=== PATIENT | female | born 1950 | race Caucasian/White ===

== ENCOUNTER → 2016-11-21 | Outpatient (CLI) | payer MEDICARE, OTHER ==
[~2016-11-21] VITALS: Ht 165.1 cm; Wt 61.2 kg
[~2016-11-21] MED LIST: SINCALIDE 1.22 MCG in IV NORMAL SALINE 50ML 30 ML IV ONE
--- NOTE | 2016-11-21 11:55 | RAD ---
Indication epigastric pain. Hepatobiliary scan was performed. 5.5 mCi of technetium labeled Choletec was administered. 1.2 mcg of CCK was diluted in saline and administered over several minutes. Following the CCK administration a gallbladder ejection fraction calculation was made. There is normal uptake of the radiopharmaceutical in the liver. Activity is seen early in the biliary system and gallbladder. Following the CCK administration the gallbladder ejection fraction approaches 80%. IMPRESSION: Normal study
== END | disposition home or self-care (01) ==
LOC: NM 07:46
PROVIDERS: ATTEND Internal Medicine Gastroenterology
DX: R10.13 Epigastric pain (principal); R11.0 Nausea
CPT/HCPCS: 78226; 96374; 96375; A9537; J2805